=== PATIENT | female | born 1995 | race Two or more races ===

== ENCOUNTER 2021-01-17 11:08 | Emergency (ER) | payer OTHER ==
[~2021-01-17] VITALS: Ht 160 cm; Wt 59.0 kg
[2021-01-17 12:18] VITALS: BP 138/79
[2021-01-17 12:31] LABS: Hepatitis B Surface Antibody Negative
[2021-01-17 12:48] LABS: Hepatitis B Surface Antigen Negative (Negative)
== END 2021-01-17 12:44 | disposition home or self-care (01) ==
LOC: ER 11:08
DX: S61.235A Puncture wound without foreign body of left ring finger without damage to nail, initial encounter (principal); W46.1XXA Contact with contaminated hypodermic needle, initial encounter; Y93.89 Activity, other specified; Y92.89 Other specified places as the place of occurrence of the external cause; Y99.8 Other external cause status
CPT/HCPCS: 36415; 86703; 86706; 86803; 87340